=== PATIENT | male | born 1995 | race Caucasian/White ===

== ENCOUNTER 2016-05-13 10:47 | Emergency (ER) | payer BC, MEDICAID ==
[2016-05-13 11:12] VITALS: BP 132/83
--- NOTE | 2016-05-13 11:43 | EDM.PDOC ---
ED HISTORY OF PRESENT ILLNESS - General Chief Complaint: Cardiovascular Problem Stated Complaint: SOB AND HEART PALPITATIONS Time Seen by Provider: 05/13/16 11:35 Source: Reports: Patient, RN notes reviewed History Limitations: Reports: No limitations - History of Present Illness INITIAL COMMENTS - FREE TEXT/NARRATIVE: 20-year-old male presents to emergency department today complaining of palpitations, he has had palpitations for the last several months however today he had a couple episodes gastric port to the emergency room for further evaluation he does get short of breath when the palpitations he is asymptomatic at this time no history of heart disease the family - Related Data Allergies/ADRs: Allergies Allergy/AdvReac Type Severity Reaction Status Date / Time amoxicillin Allergy Cannot Verified 05/13/16 11:14 Remember morphine Allergy Vomiting Verified 05/13/16 11:14 Past Medical History - Past Surgical History HEENT Surgical History: Reports: Tonsillectomy GI Surgical History: Reports: ERCP Musculoskeletal Surgical History: Reports: Arthroscopic knee, Other (see below) Other Musculoskeletal Surgeries/Procedures:: club feet Social & Family History - Tobacco Use Smoking Status *Q: Never Smoker ED ROS GENERAL - Review of Systems Review Of Systems: See Below Constitutional: Reports: no symptoms Respiratory: Reports: shortness of breath Cardiovascular: Reports: Palpitations GI/Abdominal: Reports: No symptoms : Reports: no symptoms ED EXAM, GENERAL - Physical Exam Exam: See Below Free Text/Narrative:: General: Male, not in any distress, alert and oriented x3 HEENT: head is atraumatic normocephalic, eyes pupils equal round reactive to light and accommodation sclera clear no conjunctivitis appreciated. Ears tympanic membranes clear and [place] landmarks and light reflex are present bilaterally canals are clear. Nose no septal deviation, nares are clear, no blood present. Mouth mucosa is moist and pink no erythema or exudate noted in soft palate, tongue is midline uvula is midline, dentition is intact. Neck: Supple no thyromegaly no tracheal deviation. Nodes: Cervical nodes subclavicular nodes nontender no palpable lymphadenopathy noted. Lungs: clear to auscultation bilaterally with symmetrical respirations, no adventitious noise appreciated. CV: Regular rate and rhythm S1 and S2 appreciated no murmurs rubs or gallops noted. Course - Vital Signs Last Recorded V/S: Last Vital Signs Temp 97.2 F 05/13/16 11:23 Pulse 85 05/13/16 11:23 Resp 14 05/13/16 11:23 BP 132/83 05/13/16 11:23 Pulse Ox 100 05/13/16 11:23 - Orders/Labs/Meds Orders: Active Orders 24 hr Category Date Time Status Cardiac Monitoring [RC] .As Directed Care 05/13/16 11:41 Active EKG Documentation Completion [RC] ASDIRECTED Care 05/13/16 11:41 Active EKG 12 Lead [EK] Stat Ther 05/13/16 11:41 Ordered Labs: Laboratory Tests 05/13/16 05/13/16 05/13/16 Range/Units 11:48 11:48 11:48 WBC 7.3 (4.5-11.0) K/uL RBC 5.04 (4.30-5.90) M/uL Hgb 12.2 (12.0-15.0) g/dL Hct 39.1 L (40.0-54.0) % MCV 78 L (80-98) fL MCH 24 L (27-31) pg MCHC 31 L (32-36) % Plt Count 330 (150-400) K/uL Neut % (Auto) 58 (36-66) % Lymph % (Auto) 27 (24-44) % [place] % (Auto) 11 H (2-6) % Eos % (Auto) 3 (2-4) % Baso % (Auto) 1 (0-1) % Sodium 139 L (140-148) mmol/L Potassium 3.8 (3.6-5.2) mmol/L Chloride 102 (100-108) mmol/L Carbon Dioxide 31 (21-32) mmol/L Anion Gap 9.8 (5.0-14.0) mmol/L BUN 14 (7-18) mg/dL Creatinine 1.2 (0.8-1.3) mg/dL Est Cr Clr Drug Dosing 115.12 mL/min Estimated GFR (MDRD) > 60 (>60) Glucose 94 (74-106) mg/dL Calcium 9.0 (8.5-10.1) mg/dL Troponin I < 0.017 (0.000-0.056) ng/mL TSH, Ultra Sensitive 1.600 (0.358-3.740) uIU/mL Departure - Departure Time of Disposition: 12:54 Disposition: Home, Self-Care 01 Condition: good Clinical Impression: Palpitation Forms: ED Department Discharge Additional Instructions: Please followup with your primary care provider discussed the possibility of an event monitor or a Holter monitor, call or return to the ED with worsening of symptoms - My Orders Last 24 Hours: My Active Orders 05/13/16 11:41 Cardiac Monitoring [RC] .As Directed EKG Documentation Completion [RC] ASDIRECTED EKG 12 Lead [EK] Stat - Assessment/Plan Last 24 Hours: My Active Orders 05/13/16 11:41 Cardiac Monitoring [RC] .As Directed EKG Documentation Completion [RC] ASDIRECTED EKG 12 Lead [EK] Stat Plan: Assessment Acuity = acute Site and laterality = palpitations Etiology = unclear etiology Manifestations = none Location of injury = home Lab values = CBC, BMP, thyroid, EKG all within normal limits Plan I did review lab results and EKG results with him and have him followup with his primary care recommend an event monitor or Holter monitor to try and catch these sporadic events Patient was in agreement with the plan all questions were answered, they were instructed to return to the emergency department or call for worsening symptoms. This note was dictated using [employer] voice recognition software please call with any questions.
== END 2016-05-13 13:08 | disposition home or self-care (01) ==
LOC: JP.ED 10:47
DX: R00.2 Palpitations (principal); Z88.1 Allergy status to other antibiotic agents; Z88.8 Allergy status to other drugs, medicaments and biological substances
CPT/HCPCS: 36415; 80048; 84443; 84484; 85025; 93005; 99285-25

== ENCOUNTER 2017-03-03 12:46 | Emergency (ER) | payer BC, MEDICAID ==
[2017-03-03 12:58] VITALS: BP 118/77
--- NOTE | 2017-03-03 13:29 | EDM.PDOC ---
ED HPI GENERAL MEDICAL PROBLEM - General Chief Complaint: General Stated Complaint: KNEE PAIN Time Seen by Provider: 03/03/17 13:15 Source of Information: Reports: Patient History Limitations: Reports: No Limitations - History of Present Illness INITIAL COMMENTS - FREE TEXT/NARRATIVE: 21-year-old male who had knee surgery 11 days ago, is having significant discomfort especially at night and having trouble sleeping. He took his hydrocodone as prescribed but ran out, called his surgeon and he couldn't get anymore medication without a recheck. The surgeon is 40 miles away and the patient's car isn't starting because of the cold weather. Location: Reports: Lower Extremity, Left Left Knee Pain Score (Numeric/FACES): 6 - Related Data Allergies Allergy/AdvReac Type Severity Reaction Status Date / Time amoxicillin Allergy Cannot Verified 03/03/17 13:17 Remember morphine Allergy Vomiting Verified 03/03/17 13:17 *MOTRIN Allergy Rash Uncoded 03/03/17 13:17 Home Meds: Home Meds NK [No Known Home Meds] 03/03/17 [History] Past Medical History - Past Surgical History Musculoskeletal Surgical History: Reports: Arthroscopic Knee, Other (See Below) Social & Family History - Tobacco Use Smoking Status *Q: Never Smoker ED ROS GENERAL - Review of Systems Review Of Systems: See Below Constitutional: Denies: Fever, Chills Respiratory: Denies: Shortness of Breath GI/Abdominal: Denies: Nausea, Vomiting ED EXAM, GENERAL - Physical Exam Exam: See Below Exam Limited By: No Limitations General Appearance: Alert, No Apparent Distress Respiratory/Chest: No Respiratory Distress Extremities: Other (Exam is otherwise limited to the left leg. The knee immobilizer was removed and reveals a healing surgical incision over the anterior lower leg, a moderate knee effusion but no redness or evidence of infection.) Course - Vital Signs Last Recorded V/S: Last Vital Signs Temp 97.1 F 03/03/17 13:13 Pulse 107 H 03/03/17 13:13 Resp 16 03/03/17 13:13 BP 118/77 03/03/17 13:13 Pulse Ox 97 03/03/17 13:13 - Re-Assessments/Exams Free Text/Narrative Re-Assessment/Exam: 03/03/17 13:28 Patient was given 10 hydrocodone to use for pain control when trying to sleep. He has an appointment with his surgeon in 3 days. Departure - Departure Time of Disposition: 13:39 Disposition: Home, Self-Care 01 Condition: Good Clinical Impression: Postoperative pain of left knee - Discharge Information Instructions: Knee Pain Referrals: PCP,None [Primary Care Provider] - Forms: ED Department Discharge Care Plan Goals: Continue with ibuprofen and add stronger pain medication as needed and prescribed. Recheck on the third as scheduled.
== END 2017-03-03 13:40 | disposition home or self-care (01) ==
LOC: JP.ED 12:46
DX: G89.18 Other acute postprocedural pain (principal); M25.562 Pain in left knee; Z88.5 Allergy status to narcotic agent; Z88.1 Allergy status to other antibiotic agents; Z88.6 Allergy status to analgesic agent
CPT/HCPCS: 99283

== ENCOUNTER 2019-05-05 12:34 | Emergency (ER) | payer BC, MEDICAID ==
--- NOTE | 2019-05-05 13:14 | EDM.PDOC ---
ED HPI GENERAL MEDICAL PROBLEM - General Chief Complaint: Gastrointestinal Problem Stated Complaint: ULCERATIVE COLITIS SYMPTOMS Time Seen by Provider: 05/05/19 13:48 Source of Information: Reports: Patient, Significant Other History Limitations: Reports: No Limitations - History of Present Illness INITIAL COMMENTS - FREE TEXT/NARRATIVE: The pt. states he is followed by color depositing machine tender, Dr. Lopez , at [facility] Onset: Other (one month ago) Duration: Chronic, Getting Worse Location: Reports: Abdomen Quality: Reports: Dull Severity: Moderate Improves with: Reports: Eating Worsens with: Reports: None Associated Symptoms: Reports: Nausea/Vomiting. Denies: Shortness of Breath Abdomen Pain Score (Numeric/FACES): 3 - Related Data Allergies Allergy/AdvReac Type Severity Reaction Status Date / Time amoxicillin Allergy Cannot Verified 05/05/19 13:17 Remember morphine AdvReac Vomiting Verified 05/05/19 14:17 *MOTRIN Allergy Rash Uncoded 05/05/19 13:17 Home Meds: Home Meds Loperamide [Imodium] 4 mg PO Q6H 05/05/19 [History] Peppermint Oil [Ibgard] 180 mg PO BID 05/05/19 [History] Simethicone [Gas-X] 125 mg PO ASDIRECTED 05/05/19 [History] Past Medical History Gastrointestinal History: Reports: Inflammatory Bowel Disease Other Neuro History: TOURETTE'S SYNDROME Psychiatric History: Reports: Bipolar, Learning Disability - Past Surgical History Musculoskeletal Surgical History: Reports: Arthroscopic Knee, Other (See Below) ED ROS GENERAL - Review of Systems Review Of Systems: See Below Constitutional: Reports: Chills, Malaise, Weakness, Decreased Appetite HEENT: Denies: Ear Pain, Nose Pain, Throat Pain Respiratory: Denies: Cough Cardiovascular: Denies: Chest Pain Endocrine: Reports: Fatigue GI/Abdominal: Reports: Abdominal Pain, Bloody Stool, Diarrhea, Nausea, Vomiting : Reports: No Symptoms Skin: Reports: Pallor Neurological: Reports: No Symptoms ED EXAM, GI/ABD - Physical Exam Exam: See Below Exam Limited By: No Limitations General Appearance: Moderate Distress Eyes: Bilateral: Normal Appearance, Pale Conjunctiva Ears: Normal External Exam, Normal Canal, Normal TMs Head: Atraumatic Neck: Normal Inspection Respiratory/Chest: No Respiratory Distress Cardiovascular: Normal Peripheral Pulses, Regular Rate, Rhythm GI/Abdominal Exam: No Organomegaly, Abnormal Bowel Sounds (hyperactive). No: Mass, Splenomegaly Extremities: Normal Inspection, Normal Range of Motion Neurological: Alert, Oriented Psychiatric: Depressed Mood Skin Exam: Dry, No Rash. No: Erythema Course - Vital Signs Last Recorded V/S: Last Vital Signs Temp 36.1 C 05/05/19 13:15 Pulse 73 05/05/19 15:34 Resp 17 05/05/19 13:15 BP 125/76 05/05/19 15:34 Pulse Ox 100 05/05/19 15:34 - Orders/Labs/Meds Orders: Active Orders 24 hr Category Date Time Status iohexoL [Omnipaque-300] Med 05/05/19 14:15 Active 50 ml PO .ASDIRECTED methylPREDNISolone Sod Succ [Solu-MEDROL] 250 mg Med 05/05/19 17:03 Ordered Dextrose 5% in Water 100 ml IV ONETIME Medication Orders Methylprednisolone Sodium Succinate 250 mg/ Dextrose/Water 104 mls @ 200 mls/ hr IV ONETIME ONE Stop: 05/05/19 17:34 Iohexol (Omnipaque-300) 50 ml PO .ASDIRECTED RAE Last Admin: 05/05/19 14:45 Dose: 50 ml Labs: Laboratory Tests 05/05/19 05/05/19 05/05/19 Range/Units 14:11 14:11 14:11 WBC 12.1 H (4.5-11.0) K/uL RBC 5.08 (4.30-5.90) M/uL Hgb 11.7 L (12.0-15.0) g/dL Hct 40.3 (40.0-54.0) % MCV 79 L (80-98) fL MCH 23 L (27-31) pg MCHC 29 L (32-36) % Plt Count 469 H (150-400) K/uL Sodium 141 (140-148) mmol/L Potassium 4.6 (3.6-5.2) mmol/L Chloride 103 (100-108) mmol/L Carbon Dioxide 29 (21-32) mmol/L Anion Gap 9.4 (5.0-14.0) mmol/L BUN 5 L D (7-18) mg/dL Creatinine 0.9 (0.8-1.3) mg/dL Est Cr Clr Drug Dosing 147.14 mL/min Estimated GFR (MDRD) > 60 (>60) Glucose 90 (74-106) mg/dL Lactic Acid 1.6 (0.4-2.0) mmol/L Calcium 8.9 (8.5-10.1) mg/dL Total Bilirubin 0.4 (0.2-1.0) mg/dL AST 9 L (15-37) U/L ALT 14 (12-78) U/L Alkaline Phosphatase 103 (46-116) U/L C-Reactive Protein (0.0-0.3) mg/dL Total Protein 7.7 (6.4-8.2) g/dL Albumin 3.4 (3.4-5.0) g/dL Globulin 4.3 H (2.3-3.5) g/dL Albumin/Globulin Ratio 0.8 L (1.2-2.2) Urine Color (YELLOW) Urine Appearance (CLEAR) Urine pH (5.0-8.0) Ur Specific [place] (1.008-1.030) Urine Protein (NEGATIVE) mg/dL Urine Glucose (UA) (NEGATIVE) mg/dL Urine Ketones (NEGATIVE) mg/dL Urine Occult Blood (NEGATIVE) Urine Nitrite (NEGATIVE) Urine Bilirubin (NEGATIVE) Urine Urobilinogen (0.2-1.0) EU/dL Ur Leukocyte Esterase (NEGATIVE) Urine RBC (0-5) Urine WBC (0-5) Ur Epithelial Cells Amorphous Sediment Urine Bacteria Urine Mucus 05/05/19 05/05/19 Range/Units 14:55 15:59 WBC (4.5-11.0) K/uL RBC (4.30-5.90) M/uL Hgb (12.0-15.0) g/dL Hct (40.0-54.0) % MCV (80-98) fL MCH (27-31) pg MCHC (32-36) % Plt Count (150-400) K/uL Sodium (140-148) mmol/L Potassium (3.6-5.2) mmol/L Chloride (100-108) mmol/L Carbon Dioxide (21-32) mmol/L Anion Gap (5.0-14.0) mmol/L BUN (7-18) mg/dL Creatinine (0.8-1.3) mg/dL Est Cr Clr Drug Dosing mL/min Estimated GFR (MDRD) (>60) Glucose (74-106) mg/dL Lactic Acid (0.4-2.0) mmol/L Calcium (8.5-10.1) mg/dL Total Bilirubin (0.2-1.0) mg/dL AST (15-37) U/L ALT (12-78) U/L Alkaline Phosphatase (46-116) U/L C-Reactive Protein 1.85 H (0.0-0.3) mg/dL Total Protein (6.4-8.2) g/dL Albumin (3.4-5.0) g/dL Globulin (2.3-3.5) g/dL Albumin/Globulin Ratio (1.2-2.2) Urine Color Yellow (YELLOW) Urine Appearance Clear (CLEAR) Urine pH 7.5 (5.0-8.0) Ur Specific [place] 1.025 (1.008-1.030) Urine Protein Trace H (NEGATIVE) mg/dL Urine Glucose (UA) Negative (NEGATIVE) mg/dL Urine Ketones Negative (NEGATIVE) mg/dL Urine Occult Blood Negative (NEGATIVE) Urine Nitrite Negative (NEGATIVE) Urine Bilirubin Negative (NEGATIVE) Urine Urobilinogen 0.2 (0.2-1.0) EU/dL Ur Leukocyte Esterase Negative (NEGATIVE) Urine RBC Not seen (0-5) Urine WBC 0-5 (0-5) Ur Epithelial Cells Not seen Amorphous Sediment Few Urine Bacteria Not seen Urine Mucus Not seen Meds: Medications Generic Name Dose Route Start Last Admin Trade Name Freq PRN Reason Stop Dose Admin Methylprednisolone Sodium 104 mls @ 200 mls/hr 05/05/19 17:03 Succinate 250 mg/ Dextrose/ IV 05/05/19 17:34 Water ONETIME ONE Iohexol 50 ml 05/05/19 14:15 05/05/19 14:45 Omnipaque-300 PO 50 ml .ASDIRECTED RAE Administration Discontinued Medications Generic Name Dose Route Start Last Admin Trade Name Freq PRN Reason Stop Dose Admin Sodium Chloride 1,000 mls @ 999 mls/hr 05/05/19 14:06 05/05/19 14:28 Normal Saline IV 05/05/19 15:06 999 mls/hr .BOLUS ONE Administration Acetaminophen 1,000 mg/ Premix 100 mls @ 400 mls/hr 05/05/19 14:07 IV 05/05/19 14:21 NOW ONE Acetaminophen 1,000 mg/ Premix 100 mls @ 400 mls/hr 05/05/19 14:30 05/05/19 14:29 IV 05/05/19 14:44 400 mls/hr NOW ONE Administration Sodium Chloride 75 mls @ 3 mls/sec 05/05/19 15:45 05/05/19 15:50 Normal Saline IV 05/05/19 15:46 3 mls/sec ASDIRECTED RAE Administration Iopamidol 100 ml 05/05/19 15:45 05/05/19 15:50 Isovue-300 (61%) IV 05/05/19 15:46 100 ml . DIRECTED RAE Administration Ondansetron HCl 4 mg 05/05/19 14:06 05/05/19 14:32 Zofran IVPUSH 05/05/19 14:07 4 mg ONETIME ONE Administration Sodium Chloride 10 ml 05/05/19 15:33 05/05/19 15:51 Saline Flush FLUSH 05/05/19 15:34 10 ml ONETIME ONE Administration Departure - Departure Time of Disposition: 17:10 (No life threatening abnormality on lab results. vital signs nml. CT without obstruction or perforation. Will Rx w/steroids and rectal mesalamine and have pt follow with GI specialist. Elevated CRP consistent with UC exacerbation.) Disposition: Home, Self-Care 01 Condition: Good Clinical Impression: Ulcerative colitis with rectal bleeding - Discharge Information Instructions: Ulcerative Colitis, Adult Referrals: PCP,None [Primary Care Provider] - Forms: ED Department Discharge Additional Instructions: Follup with color depositing machine tender as per your scheduled appt. Don't start prednisone by mouth until tomorrow AM. Sepsis Event Note - Focused Exam Vital Signs: Vital Signs Temp Pulse Resp BP Pulse Ox 05/05/19 15:34 73 125/76 100 05/05/19 14:36 87 122/78 95 05/05/19 13:15 36.1 C 91 17 122/80 97 05/05/19 13:02 36.1 C 91 17 122/80 97 Date Exam was Performed: 05/05/19 Time Exam was Performed: 17:05 - My Orders Last 24 Hours: My Active Orders 05/05/19 14:15 iohexoL [Omnipaque-300] 50 ml PO .ASDIRECTED 05/05/19 17:03 methylPREDNISolone Sod Succ [Solu-MEDROL] 250 mg Dextrose 5% in Water 100 ml IV ONETIME - Assessment/Plan Last 24 Hours: My Active Orders 05/05/19 14:15 iohexoL [Omnipaque-300] 50 ml PO .ASDIRECTED 05/05/19 17:03 methylPREDNISolone Sod Succ [Solu-MEDROL] 250 mg Dextrose 5% in Water 100 ml IV ONETIME
[2019-05-05] MEDS ORDERED: Acetaminophen 1,000 MG in Premix Bag 1 BAG IV ONE (14:07)
[2019-05-05] MEDS: Sodium Chloride 0.9% 1,000 ML IV ONE (14:28)
[2019-05-05] MEDS: Acetaminophen 1,000 MG in Premix Bag 1 BAG IV ONE (14:29)
[2019-05-05] MEDS: Ondansetron 4 MG/2 ML SDV IVPUSH ONE (14:32)
[2019-05-05] MEDS: Iohexol 647 MG/ML 50 ML SDV PO SCH (14:45)
[2019-05-05 15:34] VITALS: BP 125/76; PULSE 73
[2019-05-05] MEDS: Iopamidol 612 MG/ML 100 ML Bottle IV SCH (15:50)
[2019-05-05] MEDS: Sodium Chloride 0.9% 75 ML IV SCH (15:50)
[2019-05-05] MEDS: Sodium Chloride 0.9% 10 ML Syringe FLUSH ONE (15:51)
--- NOTE | 2019-05-05 16:25 | CRLCT ---
INDICATION: Bloody diarrhea in the setting known history of colitis. COMPARISON: None TECHNIQUE: CT examination of the abdomen and pelvis was performed following the uneventful intravenous administration of 100 cc of Isovue-300. Thin section axial images were obtained from the lung bases through the pubic symphysis. Oral contrast was not administered. Please note that all CT scans at this facility use dose modulation, iterative reconstruction, and/or weight-based dosing when appropriate to reduce radiation dose to as low as reasonably achievable. FINDINGS: LUNG BASES: The lung bases as visualized appear normal.The heart size is normal at the lung bases. LIVER/BILIARY SYSTEM:The liver is normal in size and configuration. There is no focal mass and there is no intra- or extra hepatic biliary ductal dilatation.The gall bladder appears normal. ADRENALS: Normal KIDNEYS, URETERS and BLADDER:The kidneys appear normal. No visible mass, calculus or hydronephrosis. The ureters and bladder as visualized appear normal. SPLEEN:Normal appearance. PANCREAS: Appears normal. RETROPERITONEUM and MESENTERY: There is no mass, adenopathy or aortic aneurysm. GASTROINTESTINAL SYSTEM: Moderate pancolitis pattern. This includes the rectum. Findings are of wall thickening, intramural colonic wall edema, pericolonic inflammatory change but no significant free fluid, intramural air, venous air, collection or pneumoperitoneum. Appendix appears normal. Assuming this is not an unrelated process such as C diff colitis, the findings are consistent with an acute flare of ulcerative colitis. PELVIS: No mass, adenopathy or free fluid. OSSEOUS STRUCTURES and ABDOMINAL WALL: There is an age-appropriate appearance of the osseous structures.No significant abdominal wall defect. OTHER: No free fluid or free air. IMPRESSION: Moderate proctitis and pancolitis pattern. Assuming this is not an unrelated process such as C diff colitis, the findings are consistent with an acute flare of ulcerative colitis. Please note that all CT scans at this facility use dose modulation, iterative reconstruction, and/or weight-based dosing when appropriate to reduce radiation dose to as low as reasonably achievable. Dictated by David Smith MD @ May 05 2019 4:18PM Signed by Dr. David Smith @ May 05 2019 4:23PM
[2019-05-05] MEDS: methylPREDNISolone Sod Succ 250 MG in Dextrose 5% in Water 100 ML IV ONE ×2 (17:15)
== END 2019-05-05 18:03 | disposition home or self-care (01) ==
LOC: JP.ED 12:34
DX: K51.90 Ulcerative colitis, unspecified, without complications (principal); Z88.1 Allergy status to other antibiotic agents; Z88.5 Allergy status to narcotic agent
CPT/HCPCS: 36415; 74177; 80053; 81001; 83605; 85027; 86140; 96365; 96367; 96375; 99284; J0131; J2405; J2930; J7030; J7050; J7060; Q9967